=== PATIENT | female | born 1955 ===

== ENCOUNTER → 2025-05-26 13:23 | Outpatient (BNVA) | payer MEDICARE, SELFPAY | PROVIDERS: PCP Student in an Organized Health Care Education/Training Program; Referring Provider Student in an Organized Health Care Education/Training Program; Visit Provider Registered Nurse | DX: G44.209 Tension-type headache, unspecified, not intractable (principal) | CPT/HCPCS: 99212 ==

== ENCOUNTER → 2025-05-26 13:23 | Outpatient (AMB) | payer MEDICARE, SELFPAY ==
--- OUTSIDE RECORDS SUMMARY | 2025-05-26 13:39 | XMS_ITS | Clinical Summary ---
Author Organization [facility] Address [address] [place] [address] Care Team Providers Care Environmental Service Aide Name Role Phone Unavailable Primary Care Provider Unavailabl e Source Comments PLEASE NOTE, if this patient is a minor, it may be UNLAWFUL to discuss sensitive information that is contained in these records (such as FAMILY PLANNING, MENTAL HEALTH or SUBSTANCE ABUSE) with the minor patient's parent or other person without the patient's specific authorization.[facility] Medications rosuvastatin (CRESTOR) 20 mg tablet Take 20 mg by mouth once daily as directed. Active Active Problems Problem Noted Date Diagnosed Date Food insecurity 11/26/2024 Financial difficulties 11/26/2024 Unsatisfactory living conditions 11/26/2024 Social History Tobacco Use Types Packs/Day Years Used Date Smoking Tobacco: Never Smokeless Tobacco: Never Tobacco Cessation:Counseling Given: Not Answered Social Connections Answer Date Recorded How often do you feel lonely or isolated from th ose around you? 2 11/26/2024 Financial Resource Strain Answer Date R ecorded Hard to pay for: Food 2 11/26/2024 Stress Answer Date Recorded Do you feel these kinds of stress these days? 2 11/26/2024 Physical Activity Answer Date Recorded Physical Activity 0 03/19/2024 Food Insecurity Answer Date Recorded Hard to pay for: Food 2 11/26/2024 Transportation Needs Answer Date Record ed Hard to pay for: Transportation 1 11/26/2024 Housing Stability Answer Date Recorded Think about the place you li ve. Do you have problems with any of the following? (Check all that apply) 2 11/26/2024 Safety and Environment Answer Date Tavo rded Safety 0 03/19/2024 Utilities Answer Date Recorded Hard to pay for: Utilities 1 11/26 Employment Answer Date Recorded Stress 0 07/17/2024 Comments Unknown Sex and Gender Information Value Date Recorded Sex Assigned at Not on file Legal Sex Female 10:54 AM PDT Gender Identity Not on file Sexual Orientation Not on file Last Filed Vital Signs Vital Sign Reading Time Taken Comments Blood Pressure 123/74 01/27/2025 3:03 PM EDT Pulse 61 01/27/2025 3:03 PM EDT Temperature - - Respiratory Rate - - Oxygen Saturation - - Inhaled Oxygen Concentration - - Weight - - Height - - Body Mass Index - - Plan of Treatment Upcoming Encounters Date Type Department Care Team (Late st Contact Info) Description 07/30/2025 1:00 PM EDT Office Visit [facility] [address] [place] [phone] Ramila Stephen [address] [place] [address] Health Maintenance Due Date Last Done Comments Diabetes Screening 1955 Hepatitis C Screening 1955 Lipid Screening 1955 Imm-DTaP/Tdap/Td (1 - Tdap) 1975 Breast Cancer Screening (Mammogram) 1996 CT Colonography 2001 Colonoscopy 2001 Colorectal Cancer Screening 2001 FIT/gFOBT 2001 Fecal DNA 2001 Flexible Sigmoidoscopy 2001 Imm-Pneumococcal 50+ (1 of 1 - PCV) 2006 Imm-Zoster, Recombinant (1 of 2) 2006 Bone Density Screening 2021 Falls Prevention 2021 [id number] (1 - season) 2024 Alcohol and Drug Screen 10/23/2024 Depression Annual Screen 10/23/2024 Imm-Influenza (#1) 2025 Hypertension Screening (#1) 01/27/2026 Tobacco Screening 01/27/2026 01/27/2025 Dental BW 01/29/2026 01/27/2025, 07/27/2024 Dental Examination 01/29/2026 01/27/2025, 07/27/2024 Dental Perio Charting 01/29/2026 01/27/2025 Dental Prophy 01/29/2026 01/27/2025, 07/27/2024 Dental FMX/Pano 07/29/2029 07/27/2024 Procedures Procedure Name Priority Date/Time Associated Diagnosis Comments COMP PERIODONTAL EVALUATION - NEW/EST PATIENT Routine 01/27/2025 9:40 AM EDT Encounter for dental examination BITEWINGS - FOUR RADIOGRAPHIC IMAGES Routine 01/27/2025 9:40 AM EDT Encounter for dental examination PROPHYLAXIS - ADULT Routine 01/27/2025 9 :40 AM EDT Encounter for dental examination PERIODIC ORAL EVALUATION ESTABLISHED PATIENT Routine 01/27/2025 9:40 AM EDT Encounter for dental examination INTRAORAL - COMP SERIES OF RADIOGRAPHIC IMAGES Routine 07/27/2024 11:20 AM EDT Caries of enamel (incipient) Defective dental temple Caries from Last 3 Months or Most Recently Relevant to Health Maintenance Insurance [facility] [address] D[facility]
--- OUTSIDE RECORDS SUMMARY | 2025-05-26 13:39 | XMS_ITS | Clinical Summary ---
Author Organization [facility] Address [address] [place] [address] Phone Care Team Providers Care Director Consumer Name Role Phone Hanh Obrien MD Primary Care Provider Allergies No known active allergies Medications diclofenac (VOLTAREN) 1 % topical gel Apply 2 g topically 4 (four) times a day if needed (pain). 100 g 3 2024 Active acetaminophen (Tylenol Extra Strength) 500 mg tablet Take 2 tablets (1,000 mg total) by mouth every 6 (six) hours if needed for mild pain. 90 tablet 11 2024 Active meclizine (ANTIVERT) 25 mg tablet Take 1 tablet (25 mg total) by mouth 3 (three) times a day if needed for dizziness. 90 tablet 3 2024 Active cholecalciferol (Vitamin D3) 50 mcg (2,000 unit) tablet Take 1 tablet (2,000 Units total) by mouth 1 (one) time each day. 90 tablet 1 2024 Active rosuvastatin (CRESTOR) 20 mg tablet TAKE 1 TABLET (20 MG TOTAL) BY MOUTH ONE TIME EACH DAY 90 tablet 1 Active topiramate (TOPAMAX) 50 mg tablet Take 1 tablet (50 mg total) by mouth 2 (two) times a day. 60 each 5 2024 Discontinued rizatriptan (MAX[employer]ER) 10 mg disintegrating tablet Dissolve 1 tablet (10 mg total) on top of the tongue 1 (one) time if needed for migraine. May repeat in 2 hours if unresolved. Do not exceed 30 mg in 24 hours. 9 tablet 1 025 2024 Discontinued bisacodyL (DULCOLAX) 5 mg EC tablet Take 2 tablets by mouth right before beginning bowel prep. See instructions provided by the office 2 tablet 025 2024 Discontinued polyethylene glycol (Golytely) 236-22.74-6.74 -5.86 gram solution Take 4L by mouth once for one dose. May substitue any PEG. Starting at 6PM the night before your procedure drink 1 8oz glasses at your own pace until you complete half of the gallon. Finish 2nd half of the gallon 5 hours before your procedure. 4000 mL 025 2024 Discontinued Encounters Date Type Department Care Team Description 04/30/2025 12:47 PM EDT Anesthesia Event [facility] [address] [place] [phone] Michael Medina MD 04/30/2025 11:14 AM EDT - 04/30/2025 11:59 PM EDT Hospital Encounter [facility] [address] [place] [phone] Jesus Alberto MD Saliga, Jesse L, MD Steele, Matthew G, CRNA Hx of colonic polyps Discharge Disposition: Home or Self Care from Last 3 Months Surgical History Surgery Date Site/Laterality Comments KNEE SURGERY HYSTERECTOMY Medical History Medical History Date Comments Migraines Hyperlipidemia Dizzy spells Family History Relation Name Status Comments Maternal Grandmother COLON C ANCER Social History Tobacco Use Types Packs/Day Years Used Date Smoking Tobacco: Former Cigarettes Smokeless Tobacco: Never Tobacco Cessation:Counseling Given: Not Answered Alcohol Use Standard Drinks/Week Comments Not Currently 0 (1 standard drink = 0.6 oz pur e alcohol) Interpersonal Safety Answer Date Record ed Physical Abuse 04/30/2025 Verbal Abuse 04/30/2025 Comments No Sex and Gender Information Value Date Recorded Sex Assigned at Not on file Legal Sex Female 11:39 AM EDT Gender Identity Not on file Sexual Orientation Not on file Obstetrics History Last Filed Vital Signs Vital Sign Reading Time Taken Comments Blood Pressure 110/72 04/30/2025 1:22 PM EDT Pulse 66 04/30/2025 1:22 PM EDT Temperature 36.3 C (97.3 F) 04/30/2025 1:02 PM EDT Respiratory Rate 24 04/30/2025 1:22 PM EDT Oxygen Saturation 96% 04/30/2025 1:22 PM EDT Inhaled Oxygen Concentration - - Weight 83.9 kg (185 lb) 04/22/2025 3:00 PM EDT Height 165.1 cm (5' 5 ) 04/22/2025 3:00 PM EDT Body Mass Index 30.79 04/22/2025 3:00 PM EDT Plan of Treatment Upcoming Encounters Date Type Department Care Team (Late st Contact Info) Description 07/04/2025 10:00 AM EDT Office Visit Internal Medicine - [place] [address] [facility] [address] [place] [phone] Hanh Obrien MD [address] [facility] [address] [place] [address] Health Maintenance Due Date Last Done Comments Breast Cancer Screening 1955 DTaP,Tdap,and Td Vaccines (1 - Tdap) 1975 Pneumococcal Vaccine: 50+ Ye ars (1 of 1 - PCV) 2006 Zoster Vaccines (1 of 2) 2006 COVID-19 Vaccine ( - 2023-2 5 season) 2024 Hepatitis C Screening 08/17/2024 Medicare Annual Wellness Visit 08/17/2024 Osteoporosis Screening (Bone Density Screening) 08/17/2024 Social Influencers of Health Screening 08/17/2024 Depression Screening 10/23/2024 Influenza Vaccine (#1) 2025 Falls Risk Assessment 04/30/2026 04/30/2025 Cholesterol Screening (Lipid Panel) 01/28/2030 01/28/2025 RSV Immunization Adult Patie nts (1 - 1-dose 75+ series) 2031 Colorectal Cancer Screening: Colonoscopy 04/30/2035 04/30/2025 HIB Vaccines Aged Out No longer eligi ble based on patient's age to complete this topic HPV Vaccines Aged Out No longer eligi ble based on patient's age to complete this topic Hepatitis A Vaccines Aged Out No long er eligible based on patient's age to complete this topic Hepatitis B Vaccines Aged Out No long er eligible based on patient's age to complete this topic IPV Vaccines Aged Out No longer eligi ble based on patient's age to complete this topic MMR Vaccines Aged Out No longer eligi ble based on patient's age to complete this topic Meningococcal ACWY Vaccine Aged Out N o longer eligible based on patient's age to complete this topic Meningococcal B Vaccine Aged Out No l onger eligible based on patient's age to complete this topic RSV Immunization Patients Un benjie 20 months Aged Out No longer eligible b ased on patient's age to complete this topic Varicella Vaccines Aged Out No longer eligible based on patient's age to complete this topic Procedures Procedure Name Priority Date/Time Associated Diagnosis Comments COLONOSCOPY Routine 04/30/2025 1:01 PM EDT Hx of colonic polyps LIPID PANEL WITH REFLEX TO DIRECT LDL Routine 01/28/2025 10:33 AM EDT Adult general medical examination Encounter for lipid screening for cardiovascular disease from Last 3 Months or Most Recently Relevant to Health Maintenance Results * COLONOSCOPY Anesthesia - MAC; [facility] ENDOSCOPY (04/30/2025 1:01 PM EDT) Anatomical Region Laterality Modality Endoscopy 04/30/2025 12:1 9 PM EDT Impressions 04/30/2025 1:02 PM EDT - Diverticulosis in the sigmoid colon. - Internal hemorrhoids. - The examination was otherwise normal. - No specimens collected. Recommendation: - Discharge patient to home. - No repeat colonoscopy due to current age (66 years or older) and the absence of colonic polyps. Narrative 04/30/2025 1:02 PM EDT [facility] GI Patient Name: Kylah Ybarra Procedure Date: 04/30/2025 12:19 PM Date of : 1955 Age: 70 Gender: Female Note Status: Finalized Attending MD: Jesus Alberto MD, Procedure Date No Time: 04/30/2025 Procedure: Colonoscopy Indications: Screening for colorectal malignant neoplasm Providers: Jesus Alberto MD Referring MD: Jesus Alberto MD Medicines: Monitored Anesthesia Care Complications: No immediate complications. Estimated Blood Loss: Estimated blood loss: none. Procedure: Pre-Anesthesia Assessment: - Prior to the procedure, a History and Physical was performed, and patient medications and allergies were reviewed. The patient is competent. The risks and benefits of the procedure and the sedation options and risks were discussed with the patient. All questions were answered and informed consent was obtained. Patient identification and proposed procedure were verified by the physician, the nurse, the ticketer and the rehab technician in the pre-procedure area in the endoscopy suite. Mental Status Examination: alert and oriented. Airway Examination: normal oropharyngeal airway and neck mobility. Respiratory Examination: clear to auscultation. CV Examination: normal. Prophylactic Antibiotics: The patient does not require prophylactic antibiotics. Prior Anticoagulants: The patient has taken no anticoagulant or antiplatelet agents. ASA Grade Assessment: II - A patient with mild systemic disease. After reviewing the risks and benefits, the patient was deemed in satisfactory condition to undergo the procedure. The anesthesia plan was to use monitored anesthesia care (MAC). Immediately prior to administration of medications, the patient was re-assessed for adequacy to receive sedatives. The heart rate, respiratory rate, oxygen saturations, blood pressure, adequacy of pulmonary ventilation, and response to care were monitored throughout the procedure. The physical status of the patient was re-assessed after the procedure. After I obtained informed consent, the scope was passed under direct vision. Throughout the procedure, the patient's blood pressure, pulse, and oxygen saturations were monitored continuously. The Olympus Colonoscope was introduced through the anus and advanced to the cecum, identified by appendiceal orifice and ileocecal valve. The colonoscopy was performed without difficulty. The patient tolerated the procedure well. The quality of the bowel preparation was good. Findings: The perianal and digital rectal examinations were normal. Many small-mouthed diverticula were found in the sigmoid colon. Internal hemorrhoids were found during retroflexion. The hemorrhoids were Grade I (internal hemorrhoids that do not prolapse). The exam was otherwise without abnormality. Procedure Code(s): --- Professional --- G0121, Colorectal cancer screening; colonoscopy on individual not meeting criteria for high risk Diagnosis Code(s): --- Professional --- Z12.11, Encounter for screening for malignant neoplasm of colon CPT copyright 2020 [employer]. All rights reserved. The codes documented in this report are preliminary and upon quality control associate review may be revised to meet current compliance requirements. Jesus Alberto MD 04/30/2025 1:01:56 PM This report has been signed electronically.Jesus Alberto MD Number of Addenda: 0 Note Initiated On: 04/30/2025 12:19 PM Scope Withdrawal Time: 0 hours 6 minutes 10 seconds Scope In: 12:52:59 PM Scope Out: 1:01:12 PM Endoscopy Department at [facility] - [address] [place] [id number] Procedure Note Jesus Alberto MD - 04/30/2025 [facility] GI Patient Name: Kylah Ybarra Procedure Date: 04/30/2025 12:19 PM Date of : 1955 Age: 70 Gender: Female Note Status: Finalized Attending MD: Jesus Alberto MD, Procedure Date No Time: 04/30/2025 Procedure: Colonoscopy Indications: Screening for colorectal malignant neoplasm Providers: Jesus Alberto MD Referring MD: Jesus Alberto MD Medicines: Monitored Anesthesia Care Complications: No immediate complications. Estimated Blood Loss: Estimated blood loss: none. Procedure: Pre-Anesthesia Assessment: - Prior to the procedure, a History and Physicalwas performed, and patient medications and allergieswere reviewed. The patient is competent. The risks and benefits of the procedure and the sedation optionsand risks were discussed with the patient. Allquestions were answered and informed consent was obtained. Patient identification and proposed procedure were verified by the physician, the nurse, theanesthetist and the rehab technician in the pre-procedure area in the endoscopy suite. Mental Status Examination: alertand oriented. Airway Examination: normal oropharyngeal airway and neck mobility. Respiratory Examination: clear to auscultation. CV Examination: normal. Prophylactic Antibiotics: The patient does notrequire prophylactic antibiotics. Prior Anticoagulants: The patient has taken no anticoagulant or antiplatelet agents. ASA Grade Assessment: II - A patient withmild systemic disease. After reviewing the risks and benefits, the patient was deemed in satisfactory condition to undergo the procedure. The anesthesia plan was to use monitored anesthesia care (MAC). Immediately prior to administration of medications, the patient was re-assessed for adequacy to receive sedatives. The heart rate, respiratory rate, oxygen saturations, blood pressure, adequacy of pulmonary ventilation, and response to care were monitored throughout the procedure. The physical status ofthe patient was re-assessed after the procedure. After I obtained informed consent, the scope was passed under direct vision. Throughout theprocedure, the patient's blood pressure, pulse, and oxygen saturations were monitored continuously. TheOlympus Colonoscope was introduced through the anus and advanced to the cecum, identified by appendiceal orifice and ileocecal valve. The colonoscopy was performed without difficulty. The patient tolerated the procedure well. The quality of the bowel preparation was good. Findings: The perianal and digital rectal examinations were normal. Many small-mouthed diverticula were found in the sigmoid colon. Internal hemorrhoids were found duringretroflexion. The hemorrhoids were Grade I (internal hemorrhoids that do not prolapse). The exam was otherwise without abnormality. Procedure Code(s): --- Professional --- G0121, Colorectal cancer screening; colonoscopy on individual not meeting criteria for high risk Diagnosis Code(s): --- Professional --- Z12.11, Encounter for screening for malignantneoplasm of colon CPT copyright 2020 [employer]. All rights reserved. The codes documented in this report are preliminary and upon quality control associate reviewmay be revised to meet current compliance requirements. Jesus Alberto MD 04/30/2025 1:01:56 PM This report has been signed electronically.Jesus Alberto MD Number of Addenda: 0 Note Initiated On: 04/30/2025 12:19 PM Scope Withdrawal Time: 0 hours 6 minutes 10 seconds Scope In: 12:52:59 PM Scope Out: 1:01:12 PM Endoscopy Department at [facility] - [address] [place] [id number] IMPRESSION: - Diverticulosis in the sigmoid colon. - Internal hemorrhoids. - The examination was otherwise normal. - No specimens collected. Recommendation: - Discharge patient to home. - No repeat colonoscopy due to current age (66years or older) and the absence of colonic polyps. us Jesus Albetro MD GI~PROCEDURE ORDERABLES Fin al Result * Lipid panel with reflex to direct LDL (01/28/2025 10:33 AM EDT) Cholesterol 180 0 - 200 mg/dL LAB CHEMISTRY METHOD 01/28/2025 12:27 PM EDT [facility] Triglycerides 87 0 - 150 mg/dL LAB CHEMISTRY METHOD 01/28/2025 12:27 PM EDT [facility] HDL 65 >=40 mg/dL LAB CHEMISTRY METHOD 01/28/2025 12:27 PM EDT [facility] LDL Calculated 98 0 - 100 mg/dL LAB CHEMISTRY METHOD 01/28/2025 12:27 PM EDT [facility] VLDL Cholesterol Julien 17.4 mg/dL LAB CHEMISTRY METHOD 01/28/2025 12:27 PM EDT [facility] Non HDL Chol. (LDL+VLDL) 115 <145 mg/dL LAB CHEMISTRY METHOD 01/28/2025 12:27 PM EDT [facility] Chol/HDL Ratio 2.8 0.0 - 4.4 LAB CHEMISTRY METHOD 01/28/2025 12:27 PM T [facility] Blood Venous blood specimen / Unknown Venipuncture / Unknown 01/28/2025 10:33 AM EDT 01/28/2025 11:06 AM EDT us Hanh Obrien MD LAB BLOOD ORDERABLES Final Resul t [facility] [address] [place] [address], [place] [phone] from Last 3 Months or Most Recently Relevant to Health Maintenance Insurance [employer] Care Teams Director Consumer Relationship Specialty Start Date End Date Hanh Obrien MD [address] [place] [address] PCP - General 03/27/24
--- NOTE | 2025-05-26 14:28 | A.OFFVIS_ITS ---
Intake Visit Reasons: 2m Allergies No Known Allergies Allergy (Verified 05/26/25 14:32) Medication List - Last Reconciled 05/26/25 by Hannah Duenas CNP acetaminophen-codeine 300-30 mg 1 tab PO BID PRN amitriptyline 10 mg PO DAILY lqyyzicmem-uvqkawxweh-iaa-cod [id number] mg 1 cap PO Q4H PRN meclizine 25 mg PO TID PRN rosuvastatin 20 mg PO DAILY HPI Comments Details: 70-year-old woman with hyperlipidemia and headaches since 2021. Headaches were initially happening about 2x/week and could last the whole day. Pain felt like a tight squeezing in the head, mostly on the top, or in the occipital area. No associated symptoms of photophobia, sonophobia, nausea, or vomiting. She was taking Tylenol with codeine #3. ?She moved to the area in 2023 from [place] to care for her mother with Alzheimer?s disease and was under stress. Sleep was not so good, waking frequently during the night. She was doing much better. Headaches were ?not that much? anymore, and were down to about 1-2x/month. She was not able to start amitriptyline due to insurance issue. She tried butalbital as needed, but medication did not help. She was taking Tylenol with codeine #3 prescribed by PCP which helped some. Triggers included stress. Stress was better. She was going to the gym which was helping. Sleep was also better. ? [facility] Medical History (Updated 05/26/25 @ 14:30 by Hannah Duenas CNP) Tension headache Review of Systems Const Denies chills, Denies daytime sleepiness, Denies difficulty sleeping, Denies fatigue, Denies fever(s), Denies frequent falls, Reports headache(s), Denies increased appetite, Denies poor appetite, Denies snoring, Denies weakness, Denies weight gain and Denies weight loss Eyes Denies loss of vision ENT Denies vertigo, Denies dizziness, Reports headache(s) and Denies neck pain Card Denies chest pain at rest, Denies chest pain with activity, Denies syncope, Denies leg edema, Denies palpitations, Denies dyspnea and Denies dyspnea on exertion Resp Denies cough, Denies dyspnea, Denies dyspnea on exertion and Denies snoring GI Denies abdominal pain, Denies constipation, Denies heartburn, Denies diarrhea and Denies nausea Denies urinary frequency, Denies urinary incontinence and Denies urinary urgency Musc Denies abnormal gait, Reports back pain, Reports myalgias, Reports arthralgias, Denies neck pain, Denies numbness and Denies tingling Neuro Denies abnormal gait, Denies vertigo, Denies dizziness, Denies syncope, Denies frequent falls, Reports headache(s), Denies lack of coordination, Denies loss of vision, Denies memory loss, Denies numbness, Denies Other visual disturbances, Denies restless legs, Denies seizure-like activity, Denies tingling, Denies paresthesias, Denies tremor(s) and Denies weakness Psych Denies anxiety, Denies depression, Denies auditory hallucinations, Denies memory loss and Denies visual hallucinations Endo Denies fatigue and Denies palpitations Physical Exam Const Other: General Appearance:? normal, in no acute distress. Heart:? S1, S2 normal, no murmurs. Lungs:? clear anteriorly and posteriorly. Musculoskeletal:? normal. Extremities:? no edema. Psych:? alert, oriented, cognitive function intact, cooperative with exam. Neuro Other: Abnormal Neurological Findings:?none.? Mental Status: alert and oriented X 3. Normal attention, orientation, memory, and affect. Cranial Nerves: Pupils are equal, round, and reactive to light. External ocular muscles are intact. Visual dickey are full, no ptosis. Face is symmetrical, no facial weakness or droop. Facial sensations are normal. Tongue protrudes in midline. Palate elevates symmetrically. Shoulder shrugging is normal Motor Examination: Normal muscle tone, bulk and strength. No atrophy or fasciculations. No drift of the extended upper extremities. DTR 2+. Plantars are flexor. Straight Leg Raisin degrees. Sensory Exam: Normal light touch, temperature, pinprick, vibration, and joint- position sensations. Rhomberg sign is absent. Coordination: No ataxia. No titubation. Wngbsx-bo-eqkj, htfk-raxe-lpdh test, and rapid alternating movements were normal. Gait Exam: Within normal limits. Cerebellar Signs: Aqwnte-fy-ibal and gxgu-ia-geeb is normal. No d ysdiadochokinesia. Extrapyramidal System: No tremor, rigidity with normal facial expressions. No bradykinesia. No bradyphrenia. Normal arm swing and posture. No propulsion or retropulsion. Speech: Normal. No dysphasia or dysarthria. Assessment & Plan Assessment & Plan (1) Tension headache: Code(s): G44.209 - Tension-type headache, unspecified, not intractable Category: Medical Plan: She did not start amitriptyline due to insurance issue. Headaches were infrequent and treatment with prophylactic medication was not indicated at this time. Butalbital as needed did not help and medication was stopped. She was prescribed Tylenol #3 by PCP which she was taking. Follow up as needed. Coding Level of Care Code Est Pt Level 3 (07526) Diagnoses Tension headache G44.209
== END ==
LOC: HO.HSM 13:23
PROVIDERS: PCP Student in an Organized Health Care Education/Training Program; Referring Provider Student in an Organized Health Care Education/Training Program; Visit Provider Registered Nurse
DX: G44.209 Tension-type headache, unspecified, not intractable (principal)
CPT/HCPCS: 99213